=== PATIENT | female | born 1985 | race Two or more races ===

== ENCOUNTER 2016-07-03 09:20 | Inpatient (IN) | payer MEDICAID ==
[~2016-07-03] VITALS: Ht 154.9 cm; Wt 58.1 kg
[2016-07-03] MEDS ORDERED: LACT. RINGERS/OXYTOCIN 20UNITS 1,000 ML IV SCH (11:09)
[2016-07-03] MEDS: LACTATED RINGER'S 1,000 ML IV SCH ×2 (11:09→19:09)
[2016-07-03] MEDS ORDERED: METHYLERGONOVINE MALEATE 0.2 MG/ML AMP IM PRN (11:15)
[2016-07-03] MEDS ORDERED: MORPHINE SULF INJ 2 MG/ML SYRINGE 1ML IV PRN (11:15)
[2016-07-03] MEDS ORDERED: NALBUPHINE HCL 10 MG/1ml INJECTION IV PRN (11:15)
[2016-07-03] MEDS ORDERED: DERMOPLAST 60ML BOTTLE TOP PRN (11:15)
[2016-07-03] MEDS ORDERED: WITCH HAZEL-GLYCERIN PAD TOP PRN (11:15)
[2016-07-03] MEDS ORDERED: LIDOCAINE 2%HCL (LOCAL ANESTH.) INJ 20ML MDV IJ ONE (11:15)
[2016-07-03] MEDS ORDERED: NITROGLYCERIN 0.4 MG SL TAB SL PRN (11:15)
[2016-07-03] MEDS ORDERED: PHISODERM TOP SOLN 240ML BTL TOP PRN (11:15)
[2016-07-03 11:51] LABS: Basophils # (auto) 0 uL; Basophils % (auto) 0.1 % (0.0-2.0); Eosinophils # (auto) 0 uL; Eosinophils % (auto) 0.2 % (0.0-7.0); Hematocrit 35.4 % (36.0-46.0); Hemoglobin 11.8 g/dL (12.2-16.2); Lymphocytes # (auto) 0.9 uL; Lymphocytes % (auto) 9.2 % (10.0-50.0); Mean Corpuscular Hemoglobin 29.8 pg (28.0-32.0); Mean Corpuscular Hgb Conc. 33.4 g/dL (32.0-36.0); Mean Corpuscular Volume 89.2 fL (80.0-100.0); Mean Platelet Volume 11.2 fL (7.4-10.4); Monocytes # (auto) 0.3 uL; Monocytes % (auto) 3.4 % (0.0-12.0); Neutrophils # (auto) 8.4 uL; Neutrophils % (auto) 87.1 % (37.0-80.0); Platelet Count (auto) 196 10^3/uL (140-450); Red Cell Distribution Width 16.9 % (11.6-16.0); SUSPECT VIEW TRANSMISSION; White Blood Cell 9.7 10^3/uL (4.4-10.8)
[2016-07-03 12:05] LABS: Partial Thromboplastin Time 27.8 sec (22.64-33.71); Prothrombin Time 9.5 sec (9.37-12.3)
[2016-07-03 12:26] LABS: INR 0.88 (0.9-1.15)
[2016-07-03] MEDS ORDERED: PROMETHAZINE HCL 25 MG/ML 1ML ONE (21:08)
[2016-07-03] MEDS ORDERED: PROMETHAZINE 25 MG IVP ONE (21:11)
[2016-07-04] MEDS ORDERED: IBUPROFEN 600 MG TAB PO ONE (02:41)
[2016-07-04] MEDS ORDERED: IBUPROFEN 600 MG TAB PO PRN (02:45)
[2016-07-04] MEDS ORDERED: ACETAMINOPHEN 325 MG TAB PO PRN (02:45)
[2016-07-04] MEDS: LACTATED RINGER'S 1,000 ML IV SCH ×3 (03:09→19:09)
[2016-07-04 04:00] VITALS: BP 130/80
[2016-07-04 08:00] VITALS: BP 119/80
[2016-07-04 12:00] VITALS: BP 115/63
[2016-07-04 16:00] VITALS: BP 120/63
[2016-07-04 19:30] VITALS: BP 120/65
[2016-07-04 23:30] VITALS: BP 118/67
[2016-07-05] MEDS: LACTATED RINGER'S 1,000 ML IV SCH (03:09)
[2016-07-05 03:30] VITALS: BP 123/70
[2016-07-05 08:00] VITALS: BP 105/63
[2016-07-05] MEDS ORDERED: MEASLES, MUMPS & RUBELLA VAC(MMRII) 0.5ML SC ONE (08:00)
[2016-07-05 12:00] VITALS: BP 112/63
[2016-07-07 07:14] LABS: HIV-1/O/2 Scrn w/Reflex Non Reactive (Non Reactive)
== END 2016-07-05 13:40 | disposition home or self-care (01) | DRG 560 ==
LOC: OBSVTOIN 09:20 → LDRP 09:20
PROVIDERS: ADMIT Obstetrics & Gynecology; ATTEND Obstetrics & Gynecology
PROC: 0HQ9XZZ Repair Perineum Skin, External Approach (ICD-10-PCS; principal; 2016-07-04)
PROC: 10E0XZZ Delivery of Products of Conception, External Approach (ICD-10-PCS; 2016-07-04)
DX: O70.0 First degree perineal laceration during delivery (principal); Z37.0 Single live birth; Z3A.39 39 weeks gestation of pregnancy
CPT/HCPCS: 36415; 59025; 59409; 80307; 81002; 85025; 85610; 85730; 86592; 86762; 86850; 86900; 86901; 87340; 96361; 96366; 96372; 96375; J2590

== ENCOUNTER 2024-10-31 06:16 | Outpatient (CLI) | payer MEDICAID ==
[2024-10-31 06:42] LABS: Hematocrit 40.5 % (36.0-46.0); Hemoglobin 14.3 g/dL (12.2-16.2); Mean Corpuscular Hemoglobin 31.5 pg (28.0-32.0); Mean Corpuscular Volume 89.3 fL (80.0-100.0); Nucleated Red Blood Cells % 0.1 %
[2024-10-31 07:01] LABS: Alanine Aminotransferase 13 U/L (7-40); Albumin 4.4 g/dL (3.2-4.8); Alkaline Phosphatase 58 U/L (46-116); Anion Gap 4 (5-15); BUN/Creatinine Ratio 11.0 (10.0-20.0); Calcium 9.0 mg/dL (8.7-10.4); Carbon Dioxide 28 mmol/L (20-31); Glucose 98 mg/dL (74-106); Potassium 4.5 mmol/L (3.5-5.1); Sodium 143 mmol/L (136-145); Total Protein 6.8 g/dL (5.7-8.2)
[2024-10-31 07:02] LABS: Cholesterol 173 mg/dL (< 200); HDL Cholesterol 49 mg/dL (40-59)
[2024-10-31 07:06] LABS: Bilirubin, Total 0.3 mg/dL (0.2-1.0); Blood Urea Nitrogen 8 mg/dL (9-23); Chloride 111 mmol/L (98-107); Triglycerides 235 mg/dL (< 150)
== END 2024-10-31 17:00 | disposition home or self-care (01) ==
LOC: LAB 06:16
PROVIDERS: ATTEND Nurse Practitioner Family
DX: I10 Essential (primary) hypertension (principal); Z00.01 Encounter for general adult medical examination with abnormal findings
CPT/HCPCS: 36415; 80053; 80061; 84443; 85025